=== PATIENT | female | born 1995 | race Caucasian/White ===

== ENCOUNTER 2017-07-27 07:15 | Emergency (ER) | payer MEDICAID ==
[~2017-07-27] VITALS: Ht 160 cm; Wt 111.6 kg
[~2017-07-27 07:15] MED LIST: DOCU-131 PO; IBUP-1222 PO
[2017-07-27 07:16] VITALS: BP 134/89
== END 2017-07-27 08:12 | disposition home or self-care (01) ==
LOC: ED 08:08
DX: K08.89 Other specified disorders of teeth and supporting structures (principal)
CPT/HCPCS: 99283

== ENCOUNTER 2019-11-18 12:53 | Emergency (ER) | payer MEDICAID ==
[~2019-11-18] VITALS: Ht 160 cm; Wt 127.0 kg
[2019-11-18 13:00] VITALS: BP 135/78
--- NOTE | 2019-11-18 13:40 | NUR ---
PT PRESENTS TO ED WITH C/O VAG SPOTTING X 3 DAYS, AND LOWER BACK CRAMPING. +HOME PREG TEST, LMP 09/18/19. PT A&O, RESPS EVEN AND UNLABORED, NADN. PT TO US AT THIS TIME, URINE SENT TO LAB.
[2019-11-18 14:14] LABS: MICROSCOPIC INDICATED
--- NOTE | 2019-11-18 14:24 | NUR ---
REPORT FROM SHEBA DUENAS. PT CARE RESPONSIBILITIES ASSUMED.
[2019-11-18] MEDS ORDERED: MORPHINE SULFATE 4 MG/ML, 1ML ONE (14:25)
[2019-11-18] MEDS ORDERED: ONDANSETRON 2MG/ML, 2ML ONE (14:25)
[2019-11-18 14:33] LABS: BASOPHILS # (AUTO) 0.03 x10^3/uL (0-0.1); BASOPHILS % (AUTO) 0 % (0-1); EOSINOPHILS # (AUTO) 0.16 x10^3/uL (0-0.4); EOSINOPHILS % (AUTO) 2 % (1-7); LYMPHOCYTES # (AUTO) 2.17 x10^3/uL (1-3.4); LYMPHOCYTES % (AUTO) 22 % (22-44); MD NO; MEAN CORPUSCULAR HEMOGLOBIN 30.6 pg (27.0-34.8); MEAN CORPUSCULAR HGB CONC 33.4 g/dL (32.4-35.8); MEAN CORPUSCULAR VOLUME 91.7 fL (80-100); MEAN PLATELET VOLUME 9.2 fL (7.4-10.4); MONOCYTES # (AUTO) 0.13 x10^3/uL (0.2-0.8); MONOCYTES % (AUTO) 1 % (2-9); NEUTROPHILS # (AUTO) 7.46 x10^3/uL (1.8-6.8); NEUTROPHILS % (AUTO) 75 % (42-75); PLATELET COUNT 306 x10^3/uL (130-400); RED BLOOD COUNT 4.44 x10^6/uL (3.82-5.3); RED CELL DISTRIBUTION WIDTH 13.5 % (9.6-15.2)
[2019-11-18 14:36] LABS: ANION GAP 5 mmol/L (5-15); CALCIUM 8.9 mg/dL (8.5-10.1); CHLORIDE 109 mmol/L (98-107)
[2019-11-18 14:44] LABS: ALANINE AMINOTRANSFERASE 29 U/L (12-78); ALKALINE PHOSPHATASE 103 U/L (45-117); BILIRUBIN,TOTAL 0.3 mg/dL (0.2-1.0)
--- NOTE | 2019-11-18 14:57 | NUR ---
MD INFORMED PT DOES NOT MEET CRITERIA FOR RHOGMA PER BLOOD BANK.
[2019-11-18] MEDS ORDERED: RHOGAM FROM BLOOD BANK 1 NOTE EA IM/IV ONE (15:30)
== END 2019-11-18 16:51 | disposition home or self-care (01) ==
LOC: ED 14:28
DX: O03.9 Complete or unspecified spontaneous abortion without complication (principal)
CPT/HCPCS: 36415; 76801; 80053; 81001; 84702; 85025; 86850; 86900; 87077; 87086; 96372; 99284; J2790; 86901; 87186

== ENCOUNTER 2020-02-05 11:56 | Emergency (ER) | payer MEDICAID ==
[~2020-02-05] VITALS: Ht 160 cm; Wt 129.9 kg
[2020-02-05 12:18] VITALS: BP 170/89
[2020-02-05] MEDS ORDERED: KETOROLAC 30 MG/1 ML ONE (12:48)
[2020-02-05] MEDS ORDERED: NAPROXEN 500 MG TABLET ONE (12:54)
[2020-02-05] MEDS ORDERED: KETOROLAC 30 MG/1 ML IM ONE (13:00)
--- NOTE | 2020-02-05 13:12 | NUR ---
MEDICATED PER EMAR FOR DENTAL PAIN AT 01/12 REVIEWED HOME POC AND SXS TO WATCH FOR
[2020-02-05] MEDS ORDERED: NAPROXEN 500 MG TABLET PO ONE (13:30)
== END 2020-02-05 13:14 | disposition home or self-care (01) ==
LOC: ED 12:50
DX: K02.9 Dental caries, unspecified (principal); R11.2 Nausea with vomiting, unspecified
CPT/HCPCS: 99283

== ENCOUNTER 2020-02-17 22:20 | Emergency (ER) | payer MEDICAID ==
[~2020-02-17] VITALS: Ht 160 cm; Wt 126.6 kg
--- NOTE | 2020-02-17 22:55 | NUR ---
PT RESTING IN GOWN IN [facility]. PT ATTACHED TO VS MONITORS AT THIS TIME. VSS. PT EDUCATED ON ER PROCESS AND POC AND VERBALIZES UNDERSTANDING. CALL LIGHT IS WITHIN REACH OF PT.
[2020-02-17 23:01] LABS: BASOPHILS # (AUTO) 0.04 x10^3/uL (0-0.1); BASOPHILS % (AUTO) 1 % (0-1); EOSINOPHILS # (AUTO) 0.19 x10^3/uL (0-0.4); EOSINOPHILS % (AUTO) 3 % (1-7); LYMPHOCYTES % (AUTO) 28 % (22-44); MD NO; MEAN CORPUSCULAR HEMOGLOBIN 30.7 pg (27.0-34.8); MEAN CORPUSCULAR HGB CONC 33.6 g/dL (32.4-35.8); MEAN CORPUSCULAR VOLUME 91.5 fL (80-100); MONOCYTES # (AUTO) 0.77 x10^3/uL (0.2-0.8); MONOCYTES % (AUTO) 11 % (2-9); NEUTROPHILS # (AUTO) 4.28 x10^3/uL (1.8-6.8); NEUTROPHILS % (AUTO) 59 % (42-75); PLATELET COUNT 269 x10^3/uL (130-400); RED BLOOD COUNT 4.65 x10^6/uL (3.82-5.3); RED CELL DISTRIBUTION WIDTH 13.6 % (9.6-15.2)
--- NOTE | 2020-02-17 23:03 | NUR ---
PT AMBULATES TO RESTROOM WITH STEADY GAIT AT THIS TIME. PT BACK TO ROOM AND REATTACHED TO VS MONITORS.
[2020-02-17 23:09] LABS: ALANINE AMINOTRANSFERASE 24 U/L (12-78); ALBUMIN 3.5 g/dL (3.4-5.0); ANION GAP 5 mmol/L (5-15); CALCIUM 8.9 mg/dL (8.5-10.1); CHLORIDE 108 mmol/L (98-107); CREATININE 0.73 mg/dL (0.55-1.02)
[2020-02-17 23:10] VITALS: BP 127/76
--- NOTE | 2020-02-17 23:10 | NUR ---
URINE COLLECTED AND TUBED TO LAB AT THIS TIME.
[2020-02-17 23:14] LABS: ALKALINE PHOSPHATASE 93 U/L (45-117); TOTAL PROTEIN 7.8 g/dL (6.4-8.2)
[2020-02-17 23:19] LABS: BILIRUBIN,TOTAL 0.2 mg/dL (0.2-1.0)
[2020-02-17 23:22] LABS: MICROSCOPIC NOT IND
--- NOTE | 2020-02-18 00:01 | NUR ---
PT D/C WITH D/C SUMMARY. PT AMBULATES TO REGISTRATION DESK WITH STEADY GAIT FOR D/C HOME AND DENIES ANY OTHER NEEDS PERTAINING TO THIS VISIT. PT PROVIDED WORK NOTE PER PT REQUEST.
== END 2020-02-18 00:03 | disposition home or self-care (01) ==
LOC: ED 23:35
DX: R11.2 Nausea with vomiting, unspecified (principal); R53.1 Weakness; F17.200 Nicotine dependence, unspecified, uncomplicated
CPT/HCPCS: 36415; 80053; 81003; 84702; 85025; 99283

== ENCOUNTER 2020-02-23 02:33 | Emergency (ER) | payer MEDICAID ==
[~2020-02-23] VITALS: Ht 160 cm; Wt 129.0 kg
[2020-02-23 02:37] VITALS: BP 118/89
--- NOTE | 2020-02-23 03:45 | NUR ---
24/F. Dental pain for "weeks". Unable to find dentist. Wants pain medications.
[2020-02-23] MEDS ORDERED: BUPIVACAINE 0.25% ONE (03:49)
[2020-02-23] MEDS ORDERED: LIDOCAINE-MPF 1%, 2ML ONE (03:49)
[2020-02-23] MEDS ORDERED: LIDOCAINE-MPF 1%, 5ML INFIL ONE (04:00)
[2020-02-23] MEDS ORDERED: BUPIVACAINE 0.25% INFIL ONE (04:00)
== END 2020-02-23 05:20 | disposition home or self-care (01) ==
LOC: ED 04:13
DX: K02.9 Dental caries, unspecified (principal); K08.89 Other specified disorders of teeth and supporting structures; F17.210 Nicotine dependence, cigarettes, uncomplicated; Z72.9 Problem related to lifestyle, unspecified; R51 Headache
CPT/HCPCS: 64400; 99284; 99406; J3490

== ENCOUNTER 2020-02-24 12:42 | Emergency (ER) | payer MEDICAID ==
[~2020-02-24] VITALS: Ht 160 cm; Wt 130.5 kg
--- NOTE | 2020-02-24 13:19 | NUR ---
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
--- NOTE | 2020-02-24 14:28 | NUR ---
Satinder laboy in [facility] - 02/24/20 at 1438 by KOJO OUTSOLE SKIVER: PT AMBULATORY WITH STEADY GAIT TO ROOM AT THIS TIME. MAIKEL
--- NOTE | 2020-02-24 14:38 | NUR ---
NA X 1
--- NOTE | 2020-02-24 15:18 | NUR ---
NA X 2
--- NOTE | 2020-02-24 15:37 | NUR ---
NA X 3
== END 2020-02-24 15:38 | disposition left against medical advice (07) ==
LOC: ED 15:27
DX: K08.89 Other specified disorders of teeth and supporting structures (principal); K02.9 Dental caries, unspecified
CPT/HCPCS: 99281